=== PATIENT | male | born 1980 | race Two or more races ===

== ENCOUNTER 2023-05-24 21:56 | Emergency (ER) | payer MEDICAID, OTHER ==
[~2023-05-24] VITALS: Ht 172.7 cm; Wt 84.0 kg
[2023-05-24 22:02] VITALS: BP 127/72; PULSE 107; RESP 18; TEMP 98.9; O2SAT 96
[2023-05-24] MEDS ORDERED: IBUP1TAB5 PO (23:29)
[2023-05-24] MEDS ORDERED: PRED20TA2 PO (23:29)
[2023-05-24] MEDS ORDERED: LIDO2SOL18 MT (23:29)
[2023-05-24] MEDS ORDERED: AZITTAB PO (23:29)
[2023-05-24] MEDS ORDERED: IBUPROFEN 800 MG TAB PO ONE (23:30)
[2023-05-24] MEDS ORDERED: cefTRIAXone SOD 1,000 MG VL IM ONE (23:30)
[2023-05-24] MEDS ORDERED: LIDOCAINE VISCOUS 2% 15ML UD PO ONE (23:30)
[2023-05-24] MEDS ORDERED: DexAMETHasone SOD PHOS 10MG/1ML VIAL INJ IM ONE (23:30)
== END 2023-05-25 00:21 | disposition home or self-care (01) ==
LOC: ER 21:56
DX: J03.90 Acute tonsillitis, unspecified (principal); R50.9 Fever, unspecified
CPT/HCPCS: 96372; 99284; J0696; J1100